=== PATIENT | female | born 1955 | race African-American/Black ===

== ENCOUNTER 2021-10-03 09:04 | Emergency (ER) | payer MEDICAID, OTHER ==
[~2021-10-03] VITALS: Ht 170.2 cm; Wt 136.0 kg
[2021-10-03 09:06] VITALS: BP 146/77
[2021-10-03] MEDS ORDERED: LIDOCAINE HCL/EPINEPHRINE 1%-EPI 1:100,000 20 ML VIAL INFIL ONE (10:00)
[2021-10-03] MEDS ORDERED: CEPH500C2 MT (10:31)
[2021-10-03] MEDS ORDERED: MICO14CR5 TP (10:33)
== END 2021-10-03 10:40 | disposition home or self-care (01) ==
LOC: ER 09:04
DX: L81.9 Disorder of pigmentation, unspecified (principal); D22.4 Melanocytic nevi of scalp and neck
CPT/HCPCS: 10060; 88305; 99283; J3490

== ENCOUNTER 2021-10-06 09:20 | Emergency (ER) | payer MEDICAID ==
[~2021-10-06] VITALS: Ht 165.1 cm; Wt 109.0 kg
[~2021-10-06 09:20] MED LIST: CEPH500C2 MT; MICO14CR5 TP
[2021-10-06] MEDS ORDERED: TETANUS, DIPHTHERIA, PERTUSSIS VAC/PF 0.5ML (>10YR OLD) IM ONE (10:00)
[2021-10-06 10:49] VITALS: BP 142/73
== END 2021-10-06 10:50 | disposition home or self-care (01) ==
LOC: ER 09:30
DX: Z48.00 Encounter for change or removal of nonsurgical wound dressing (principal)
CPT/HCPCS: 90471; 90715; 99283

== ENCOUNTER 2021-10-17 10:14 | Emergency (ER) | payer MEDICAID ==
[~2021-10-17] VITALS: Ht 170.2 cm; Wt 137.0 kg
[2021-10-17 10:32] VITALS: BP 153/78
== END 2021-10-17 11:36 | disposition home or self-care (01) ==
LOC: ER 10:14
DX: Z48.02 Encounter for removal of sutures (principal)
CPT/HCPCS: 99281; Z7610

== ENCOUNTER 2022-08-29 12:36 | Emergency (ER) | payer MEDICAID ==
[~2022-08-29] VITALS: Ht 170.2 cm; Wt 105.0 kg
[2022-08-29 12:47] VITALS: BP 149/89
[2022-08-29] MEDS ORDERED: LIDOCAINE HCL/EPINEPHRINE 1%-EPI 1:100,000 20 ML VIAL INFIL ONE (14:45)
[2022-08-29] MEDS ORDERED: ACETAMINOPHEN 325MG TABLET PO ONE (14:45)
[2022-08-29] MEDS ORDERED: LIDOCAINE HCL/EPINEPHRINE 1%-EPI 1:100,000 50 ML VIAL INFIL NR (15:00)
[2022-08-29] MEDS ORDERED: IBUP-2028 MT (17:22)
== END 2022-08-29 17:36 | disposition home or self-care (01) ==
LOC: ER 12:54
DX: L91.0 Hypertrophic scar (principal)
CPT/HCPCS: 10060; 99282; J3490

== ENCOUNTER 2024-07-31 02:07 | Emergency (ER) | payer SELFPAY ==
[~2024-07-31] VITALS: Ht 170.2 cm; Wt 73.0 kg
[~2024-07-31 02:07] MED LIST changes: +IBUP-2028 MT
[2024-07-31 02:12] VITALS: PULSE 78; O2SAT 100
[2024-07-31] MEDS ORDERED: IBUP-2029 MT (04:11)
[2024-07-31 04:17] VITALS: BP 184/82; RESP 16
[2024-07-31] MEDS: LIDOCAINE 5% PATCH TOP ONE (04:17)
[2024-07-31 04:18] VITALS: TEMP 98.5
[2024-07-31] MEDS: ACETAMINOPHEN 325MG TABLET PO ONE (04:18)
== END 2024-07-31 04:22 | disposition home or self-care (01) ==
LOC: ER 02:07
DX: S13.4XXA Sprain of ligaments of cervical spine, initial encounter (principal); R07.89 Other chest pain; Z79.899 Other long term (current) drug therapy; V49.59XA Passenger injured in collision with other motor vehicles in traffic accident, initial encounter; Y93.89 Activity, other specified; Y92.89 Other specified places as the place of occurrence of the external cause; Y99.8 Other external cause status
CPT/HCPCS: 71045; 93005; 99283